=== PATIENT | female | born 1980 | race Caucasian/White ===

== ENCOUNTER → 2021-02-12 07:28 | Outpatient (CLI) | payer BC, SELFPAY ==
--- NOTE | ~2021-02-12 | MM_ITS ---
EXAMINATION: MM screening harish BI w liang HISTORY: Baseline screening mammogram TECHNIQUE: Craniocaudal and mediolateral oblique 3-D tomosynthesis images were obtained and synthetic 2-D images were generated. CAD analysis was submitted and interpreted. COMPARISON: None, baseline BREAST PARENCHYMAL COMPOSITION: The breasts are heterogeneously dense, which may obscure small masses . FINDINGS: RIGHT BREAST: There is possible architectural distortion in the posterior third of the outer breast b est appreciated on the craniocaudal view. No suspicious calcification is identified. LEFT BREAST: There is no evidence of suspicious mass, calcification, or architectural distortion to s uggest malignancy. IMPRESSION: 1. Possible right breast architectural distortion. 2. Additional mammographic views and possible breast ultrasound are recommended to evaluate for malig maribel and establish a baseline given that this is the first mammographic examination. BI-RADS Category 0: Incomplete: Needs additional imaging evaluation. Reviewed, dictated and finalized at location A. IMPRESSION: 1. Possible right breast architectural distortion. 2. Additional mammographic views and possible breast ultrasound are recommended to evaluate for malignancy and establish a baseline given that this is the fir st mammographic examination. BI-RADS Category 0: Incomplete: Needs additional imaging evaluation.
== END ==
PROVIDERS: Visit Provider Obstetrics & Gynecology
DX: Z12.31 Encounter for screening mammogram for malignant neoplasm of breast (principal); R92.8 Other abnormal and inconclusive findings on diagnostic imaging of breast
CPT/HCPCS: 77063; 77067

== ENCOUNTER → 2021-04-21 08:26 | Outpatient (CLI) | payer OTHER, SELFPAY ==
--- NOTE | ~2021-04-21 | MMUS_ITS ---
EXAMINATION: MM diagnostic harish RT w liang, US breast RT limited HISTORY: Follow-up possible architectural distortion in the right breast TECHNIQUE: Additional 3-D tomosynthesis images of the right breast were performed and synthetic 2-D i mages were generated. CAD analysis was submitted and interpreted. High resolution Limited right breas t ultrasound was performed. COMPARISON: 02/12/2021 BREAST PARENCHYMAL COMPOSITION: The breasts are heterogenously dense, which may obscure small masses. FINDINGS: MAMMOGRAPHIC FINDINGS: There are no suspicious masses, calcifications or architectural distortion in the right breast to sug gest malignancy. ULTRASOUND: Limited right breast ultrasound: There is a small cluster of microcysts at 8:00, 6 cm from the nipple measuring 6 mm in aggregate. No suspicious masses to suggest malignancy. IMPRESSION: 1. No evidence for malignancy in the right breast. 2. Routine yearly screening mammogram and regular clinical breast examination are recommended. BI-RADS Category 2: Benign finding(s). Reviewed, dictated and finalized at location A. IMPRESSION: 1. No evidence for malignancy in the right breast. 2. Routine yearly screening mammogram and regular clinical breast examination a re recommended. BI-RADS Category 2: Benign finding(s).
== END ==
PROVIDERS: Visit Provider Obstetrics & Gynecology
DX: R92.8 Other abnormal and inconclusive findings on diagnostic imaging of breast (principal)
CPT/HCPCS: 76642; 77061; 77065; G0279

== ENCOUNTER 2025-02-28 13:33 | Outpatient (CLI) | payer BC, SELFPAY ==
--- NOTE | ~2025-02-28 | MM_ITS ---
EXAMINATION: MM screening harish BI w liang HISTORY: Screening TECHNIQUE: Craniocaudal and mediolateral oblique 3-D tomosynthesis images were obtained and synthetic 2-D images were generated. CAD analysis was submitted and interpreted. COMPARISON: Comparison to multiple prior studies sequentially, with oldest reviewed study dated 04/2021. BREAST PARENCHYMAL COMPOSITION: Not dense: There are scattered areas of fibroglandular density. FINDINGS: There is no evidence of suspicious mass, calcification, or architectural distortion to sugg est malignancy in either breast. There has been no suspicious interval change. IMPRESSION: 1. No mammographic evidence of malignancy. 2. Recommend routine screening mammography in one year. BI-RADS Category 1: Negative Reviewed, dictated and finalized at location A.
== END 2025-02-28 13:34 | disposition home or self-care (01) ==
LOC: MICIMG 13:34
PROVIDERS: PCP Family Medicine; Visit Provider Obstetrics & Gynecology
DX: Z12.31 Encounter for screening mammogram for malignant neoplasm of breast (principal)
CPT/HCPCS: 77063; 77067